=== PATIENT | female | born 1985 | race Caucasian/White ===

== ENCOUNTER 2019-10-05 12:21 | Outpatient (REF) | payer OTHER, SELFPAY ==
--- NOTE | 2019-10-05 09:30 | PAPFT_PTH ---
PATIENT: Winnie Stewart LOC: [facility]#:[id number] AGE/SX: 33/F ROOM: RE10/05/[address]: Catie Urena : 1985 BED: DIS: 10/05/2019 SPEC #: [id number] RECD: 10/05/19 12:49 STATUS: TASHA TAVAREZ #: [id number] DINA: 10/05/19 09:[address]: Catie Urena DEPT: [facility] Cytology RECD BY: Delicia Harper Tissues: 1 - CX/ENDOCX FOR PAP SMEARS Procedures: PAP THIN PREP/UVM Screening HPV DNA PROBE Comments: [id number] (CHLAMYDIA/GC)
[2019-10-06 14:14] LABS: Chlamydia Result Negative (Negative); GC Result Negative (Negative)
[2019-10-06 14:15] LABS: Chlamydia Result Negative (Negative); GC Result Negative (Negative)
== END 2019-10-05 12:41 ==
LOC: NCHCN 12:21
PROVIDERS: PCP Nurse Practitioner Family; Visit Provider Nurse Practitioner Family
DX: Z11.3 Encounter for screening for infections with a predominantly sexual mode of transmission (principal); Z12.4 Encounter for screening for malignant neoplasm of cervix; Z00.00 Encounter for general adult medical examination without abnormal findings
CPT/HCPCS: 87491; 87591; 88142; 87480; 87510; 87624; 87660

== ENCOUNTER 2020-03-26 16:38 | Outpatient (REF) | payer OTHER, SELFPAY ==
[2020-03-31 19:09] LABS: SARS-CoV-2 RNA Undetected (Undetected); SARS-CoV-2 Specimen Source Nasopharynx
== END 2020-03-26 16:58 ==
LOC: NCHCN 16:38
PROVIDERS: PCP Nurse Practitioner Family; Visit Provider Nurse Practitioner Family
DX: Z20.828 Contact with and (suspected) exposure to other viral communicable diseases (principal)
CPT/HCPCS: U0003

== ENCOUNTER 2020-05-25 12:40 | Outpatient (REF) | payer OTHER, SELFPAY | END 2020-05-25 13:00 | LOC: NCHCN 12:40 | PROVIDERS: PCP Nurse Practitioner Family; Visit Provider Nurse Practitioner Family | DX: R39.9 Unspecified symptoms and signs involving the genitourinary system (principal) | CPT/HCPCS: 87086; 87480; 87510; 87660 ==

== ENCOUNTER 2020-10-22 13:13 | Outpatient (REF) | payer OTHER, SELFPAY ==
--- NOTE | 2020-10-22 10:45 | PAPFT_PTH ---
PATIENT: Winnie Stewart LOC: [facility] U#:[id number] AGE/SX: 34/F ROOM: RE10/22/[address]: ESTEFANY Jones : 1985 BED: DIS: 10/22/2020 SPEC #: [id number] RECD: 10/23/20 12:54 STATUS: TASHA REKaykay #: [id number] DINA: 10/22/20 10:[address]: Ayesha Monreal DEPT: [facility] Cytology RECD BY: Delicia Harper Tissues: 1 - CX/ENDOCX FOR PAP SMEARS Procedures: PAP THIN PREP/UVM Screening HPV DNA PROBE Comments: [id number] (CHLAMYDIA/GC) (HPV 16 / 18/45)
[2020-10-24 14:10] LABS: Chlamydia Result Negative (Negative); GC Result Negative (Negative)
== END 2020-10-22 13:33 ==
LOC: LBN 13:13
PROVIDERS: PCP Nurse Practitioner Family; Visit Provider Nurse Practitioner Family
DX: Z12.4 Encounter for screening for malignant neoplasm of cervix (principal); Z11.51 Encounter for screening for human papillomavirus (HPV); R87.810 Cervical high risk human papillomavirus (HPV) DNA test positive
CPT/HCPCS: 87491; 87591; 88142; 87624

== ENCOUNTER 2020-10-24 04:09 | Outpatient (RCR) | payer OTHER, SELFPAY ==
--- NOTE | 2020-10-24 08:00 | HOLTER_ITS ---
APPROVED REPORT Exam Type: HOLTER MONITOR APPLICATION Reason for Test: BRADYCARDIA Patient Location: O Conclusion This is a 48-hour Holter monitor ordered for indication of bradycardia. The patient was in normal sinus rhythm for the majority of the recording with an average heart rate o f 56 bpm (41-175 bpm) There were no episodes of SVT and rare PACs. There was 1 episode of NSVT which was 4 total beats. There were rare PVCs. There were no episodes of atrial fibrillation, no pauses greater than 3 seconds and no evidence of hi gh degree heart block. There was 1 patient triggered event which was associated with sinus rhythm and a single PAC.
== END 2020-11-18 23:59 | disposition home or self-care (01) ==
LOC: RT 04:09
PROVIDERS: PCP Nurse Practitioner Family; Visit Provider Nurse Practitioner Family
DX: R00.1 Bradycardia, unspecified (principal)
CPT/HCPCS: 93225; 93226

== ENCOUNTER 2020-10-26 01:25 | Outpatient (CLI) | payer OTHER, SELFPAY ==
[2020-10-26 09:28] LABS: Anion Gap 10.2 mmol/L (3-11); BUN 12 mg/dL (7-18); CO2 26.8 mmol/L (21.0-32.0); CREATININE 0.6 mg/dL (0.55-1.02); Calcium 9.1 mg/dL (8.5-10.1); Chloride 103 mmol/L (98-107); Glucose 91 mg/dL (74-106); Potassium 4.4 mmol/L (3.5-5.1); Sodium 140 mmol/L (136-145)
[2020-10-26 12:25] LABS: Calculated LDL 103 mg/dL (<100); Cholesterol 179 mg/dL (<200); HDL Cholesterol 67 mg/dL (40-60); Triglyceride 49 mg/dL (<150)
[2020-10-29 11:36] LABS: HIV-1/2 Ag & Ab Screen Negative (Negative)
== END 2020-10-26 01:26 | disposition home or self-care (01) ==
LOC: LBO 01:25
PROVIDERS: PCP Nurse Practitioner Family; Visit Provider Nurse Practitioner Family
DX: Z00.00 Encounter for general adult medical examination without abnormal findings (principal)
CPT/HCPCS: 36415; 80048; 80061; 87389

== ENCOUNTER 2020-11-20 10:31 | Outpatient (REF) | payer OTHER, SELFPAY ==
--- NOTE | 2020-11-20 09:30 | ENDO_PTH ---
PATIENT: Winnie Stewart LOC: [facility] U#:[id number] AGE/SX: 35/F ROOM: RE11/20/[address]: Dariela Patel DO : 1985 BED: DIS: 11/20/2020 SPEC #: [id number] RECD: 11/20/20 11:20 STATUS: TASHA RE #: [id number] DINA: 11/20/20 09:[address]: Dariela Patel DEPT: Surgical Specimen RECD BY: Delicia Harper ENTERED: 11/20/20 11:20 SP TYPE: Endo OTHR DR: ESTEFANY Jones Tissues: 1 - ENDOCERVICAL BX/CURRETTE Procedures: GROSS AND MICRO LEVEL 4 Comments: [id number]
== END 2020-11-20 10:32 | disposition home or self-care (01) ==
LOC: LBN 10:31
PROVIDERS: PCP Nurse Practitioner Family; Visit Provider Obstetrics & Gynecology
DX: N88.8 Other specified noninflammatory disorders of cervix uteri (principal); R87.810 Cervical high risk human papillomavirus (HPV) DNA test positive
CPT/HCPCS: 88305

== ENCOUNTER 2021-02-11 18:11 | Outpatient (REF) | payer OTHER, SELFPAY ==
[2021-02-13 14:05] LABS: Chlamydia Result Negative (Negative); GC Result Negative (Negative)
== END 2021-02-11 18:12 | disposition home or self-care (01) ==
LOC: LBN 18:11
PROVIDERS: PCP Nurse Practitioner Family; Visit Provider Physician Assistant
DX: L29.2 Pruritus vulvae (principal); N76.0 Acute vaginitis
CPT/HCPCS: 87491; 87591; 87480; 87510; 87660

== ENCOUNTER 2021-10-30 15:42 | Outpatient (REF) | payer OTHER, SELFPAY ==
--- NOTE | 2021-10-30 15:20 | PAPFT_PTH ---
PATIENT: Winnie Stewart LOC: [facility] U#:[id number] AGE/SX: 35/F ROOM: RE10/30/[address]: Dariela Patel DO : 1985 BED: DIS: 10/30/2021 SPEC #: [id number] RECD: 10/30/21 18:27 STATUS: TASHA REKaykay #: [id number] DINA: 10/30/21 15:[address]: Dariela Patel DEPT: [facility] Cytology RECD BY: Delicia Harper ENTERED: 10/30/21 18:27 SP TYPE: PAPFT OTHR DR: Ayesha Monreal, ESTEFANY Tissues: 1 - CX/ENDOCX FOR PAP SMEARS Procedures: PAP THIN PREP/UVM Screening HPV DNA PROBE Comments: [id number] (CHLAMYDIA/GC)
[2021-10-31 15:06] LABS: Chlamydia Result Negative (Negative); GC Result Negative (Negative)
== END 2021-10-30 15:43 | disposition home or self-care (01) ==
LOC: LBN 15:42
PROVIDERS: PCP Nurse Practitioner Family; Visit Provider Obstetrics & Gynecology
DX: Z12.4 Encounter for screening for malignant neoplasm of cervix (principal); Z11.51 Encounter for screening for human papillomavirus (HPV); R87.610 Atypical squamous cells of undetermined significance on cytologic smear of cervix (ASC-US); R87.810 Cervical high risk human papillomavirus (HPV) DNA test positive
CPT/HCPCS: 87491; 87591; 88142; 87624

== ENCOUNTER 2021-12-02 13:41 | Outpatient (REF) | payer OTHER, SELFPAY ==
--- NOTE | 2021-12-02 13:00 | ENDO_PTH ---
PATIENT: Winnie Stewart LOC: [facility] U#:[id number] AGE/SX: 36/F ROOM: RE12/02/[address]: Dariela Patel DO : 1985 BED: DIS: 12/02/2021 SPEC #: [id number] RECD: 12/02/21 16:45 STATUS: TASHA RE #: [id number] DIAN: 12/02/21 13:[address]: Dariela Patel DEPT: Surgical Specimen RECD BY: Delicia Harper ENTERED: 12/03/21 11:12 SP TYPE: Endo OTHR DR: ESTEFANY Jones Tissues: 1 - ENDOCERVICAL BX/CURRETTE Procedures: GROSS AND MICRO LEVEL 4 Comments: [id number]
== END 2021-12-02 13:42 | disposition home or self-care (01) ==
LOC: LBN 13:41
PROVIDERS: PCP Nurse Practitioner Family; Visit Provider Obstetrics & Gynecology
DX: R87.610 Atypical squamous cells of undetermined significance on cytologic smear of cervix (ASC-US) (principal)
CPT/HCPCS: 88305

== ENCOUNTER 2022-04-07 22:38 | Outpatient (REF) | payer OTHER, SELFPAY ==
[2022-04-09 13:59] LABS: Chlamydia Result Negative (Negative); GC Result Negative (Negative)
== END 2022-04-07 22:39 | disposition home or self-care (01) ==
LOC: LBN 22:38
PROVIDERS: Visit Provider Physician Assistant
DX: R30.0 Dysuria (principal); Z11.3 Encounter for screening for infections with a predominantly sexual mode of transmission
CPT/HCPCS: 87491; 87591; 87480; 87510; 87660

== ENCOUNTER 2022-11-15 10:50 | Outpatient (CLI) | payer BC, SELFPAY | END 2022-11-15 10:51 | disposition home or self-care (01) | LOC: DI.CM 10:50 | PROVIDERS: PCP Nurse Practitioner Family; Visit Provider Physician Assistant ==

== ENCOUNTER 2022-12-22 15:11 | Outpatient (REF) | payer BC, SELFPAY ==
--- NOTE | 2022-12-22 14:45 | PAPFT_PTH ---
PATIENT: Winnie Stewart LOC: [facility] U#:[id number] AGE/SX: 37/F ROOM: RE12/22/[address]: Dariela Patel DO : 1985 BED: DIS: 12/22/2022 SPEC #: [id number] RECD: 12/22/22 18:22 STATUS: TASHA REQ #: [id number] DINA: 12/22/22 14:[address]: Dariela Patel DEPT: [facility] Cytology RECD BY: Delicia Harper ENTERED: 12/22/22 18:22 SP TYPE: PAPFT OTHR DR: Ayesha Monreal, BUSINESS ATTORNEY Tissues: 1 - CX/ENDOCX FOR PAP SMEARS Procedures: PAP THIN PREP/UVM Screening HPV DNA PROBE Comments: [id number] (HPV 16 & 18/45)
== END 2022-12-22 15:12 | disposition home or self-care (01) ==
LOC: LBN 15:11
PROVIDERS: PCP Nurse Practitioner Family; Visit Provider Obstetrics & Gynecology
DX: Z12.4 Encounter for screening for malignant neoplasm of cervix (principal); R87.610 Atypical squamous cells of undetermined significance on cytologic smear of cervix (ASC-US); Z11.51 Encounter for screening for human papillomavirus (HPV); R87.810 Cervical high risk human papillomavirus (HPV) DNA test positive
CPT/HCPCS: 88142; 87624

== ENCOUNTER 2023-01-26 15:49 | Outpatient (REF) | payer BC, SELFPAY ==
--- NOTE | 2023-01-26 15:30 | ENDO_PTH ---
PATIENT: Winnie Stewart LOC: [facility] U#:[id number] AGE/SX: 37/F ROOM: RE01/26/[address]: Dariela Patel DO : 1985 BED: DIS: 01/26/2023 SPEC #: [id number] RECD: 01/26/23 18:17 STATUS: TASHA RE #: [id number] DINA: 01/26/23 15:[address]: Dariela Patel DEPT: Surgical Specimen RECD BY: Delicia Harper ENTERED: 01/26/23 18:17 SP TYPE: Endo OTHR DR: ESTEFANY Jones Tissues: 1 - ENDOCERVICAL BX/CURRETTE 2 - CERVICAL BIOPSY Procedures: GROSS AND MICRO LEVEL 4 Comments: [id number]
== END 2023-01-26 15:50 | disposition home or self-care (01) ==
LOC: LBN 15:49
PROVIDERS: PCP Nurse Practitioner Family; Visit Provider Obstetrics & Gynecology
DX: R87.610 Atypical squamous cells of undetermined significance on cytologic smear of cervix (ASC-US) (principal); R87.810 Cervical high risk human papillomavirus (HPV) DNA test positive; N88.8 Other specified noninflammatory disorders of cervix uteri
CPT/HCPCS: 88305

== ENCOUNTER 2024-01-07 15:15 | Outpatient (REF) | payer BC, SELFPAY ==
--- NOTE | 2024-01-07 15:00 | PAPFT_PTH ---
PATIENT: Winnie Stewart LOC: [facility] U#:[id number] AGE/SX: 38/F ROOM: RE01/07/[address]: Dariela Patel DO : 1985 BED: DIS: 01/07/2024 SPEC #: [id number] RECD: 01/07/24 17:40 STATUS: TASHA REQ #: [id number] DINA: 01/07/24 15:[address]: Dariela Patel DEPT: [facility] Cytology RECD BY: Delicia Harper ENTERED: 01/07/24 17:40 SP TYPE: PAPFT OTHR DR: Ayesha Monreal, ENGINEERING PSYCHOLOGIST Tissues: 1 - CX/ENDOCX FOR PAP SMEARS Procedures: PAP THIN PREP/UVM Screening HPV DNA PROBE Comments: [id number] (HPV 16 & 18/45)
== END 2024-01-07 15:16 | disposition home or self-care (01) ==
LOC: LBN 15:15
PROVIDERS: PCP Nurse Practitioner Family; Visit Provider Obstetrics & Gynecology
DX: Z01.419 Encounter for gynecological examination (general) (routine) without abnormal findings (principal); R87.810 Cervical high risk human papillomavirus (HPV) DNA test positive; R87.610 Atypical squamous cells of undetermined significance on cytologic smear of cervix (ASC-US)
CPT/HCPCS: 88142; 87624

== ENCOUNTER 2024-02-12 11:59 | Outpatient (REF) | payer BC, SELFPAY ==
--- NOTE | 2024-02-12 09:00 | ENDO_PTH ---
PATIENT: Winnie Stewart LOC: [facility] U#:[id number] AGE/SX: 38/F ROOM: RE02/12/[address]: Dariela Patel DO : 1985 BED: DIS: 02/12/2024 SPEC #: [id number] RECD: 02/12/24 13:07 STATUS: TASHA REKaykay #: [id number] DINA: 02/12/24 09:[address]: Dariela Patel DEPT: Surgical Specimen RECD BY: Delicia Harper ENTERED: 02/12/24 13:07 SP TYPE: Endo OTHR DR: ESTEFANY Jones Tissues: 1 - ENDOCERVICAL BX/CURRETTE Procedures: GROSS AND MICRO LEVEL 4 Comments:
== END 2024-02-12 12:00 | disposition home or self-care (01) ==
LOC: LBN 11:59
PROVIDERS: PCP Nurse Practitioner Family; Visit Provider Obstetrics & Gynecology
DX: R87.611 Atypical squamous cells cannot exclude high grade squamous intraepithelial lesion on cytologic smear of cervix (ASC-H) (principal)
CPT/HCPCS: 88305

== ENCOUNTER 2024-11-15 02:00 | Outpatient (CLI) | payer BC, SELFPAY ==
--- NOTE | 2024-11-15 12:32 | DI.RAD_ITS ---
Exam(s) XR FOOT LT COMPLETE EXAM: XR FOOT LT COMPLETE CLINICAL HISTORY: Left foot/Toe pain,m79.672. TECHNIQUE: 2D digital imaging was performed of the left foot. Four images were obtained. AP, obliq ue and lateral views were obtained. COMPARISON: No exams were available for comparison FINDINGS: BONES: No acute fracture is present. No bony destructive lesion is seen. JOINTS: No dislocation present. There is a mild hallux valgus deformity. SOFT TISSUE: Normal. IMPRESSION: No acute abnormality. Mild hallux valgus deformity. DATA REPOSITORY: RADIATION DOSE DELIVERED:
== END 2024-11-15 02:20 ==
LOC: DI 02:00
PROVIDERS: PCP Nurse Practitioner Family; Visit Provider Podiatrist
DX: M79.672 Pain in left foot (principal)
CPT/HCPCS: 73630

== ENCOUNTER 2025-01-17 10:57 | Outpatient (REF) | payer BC, SELFPAY ==
--- NOTE | 2025-01-17 10:45 | PAPFT_PTH ---
PATIENT: Winnie Stewart LOC: [facility] U#:[id number] AGE/SX: 39/F ROOM: RE01/17/[address]: Dariela Patel DO : 1985 BED: DIS: 01/17/2025 SPEC #: [id number] RECD: 01/17/25 12:55 STATUS: TASHA REQ #: [id number] DINA: 01/17/25 10:[address]: Dariela Patel DEPT: [facility] Cytology RECD BY: Delicia Harper ENTERED: 01/17/25 12:55 SP TYPE: PAPFT OTHR DR: Ayesha Monreal, HYBRID TESTER Tissues: 1 - CX/ENDOCX FOR PAP SMEARS Procedures: PAP THIN PREP/UVM Screening HPV DNA PROBE Comments: [id number] (HPV 16 & 18/45)
== END 2025-01-17 10:58 | disposition home or self-care (01) ==
LOC: LBN 10:57
PROVIDERS: PCP Nurse Practitioner Family; Visit Provider Obstetrics & Gynecology
DX: Z12.4 Encounter for screening for malignant neoplasm of cervix (principal)
CPT/HCPCS: 88142; 87624

== ENCOUNTER 2025-02-17 00:57 | Outpatient (CLI) | payer BC, SELFPAY ==
[2025-02-17 12:34] LABS: HGB 13.2 g/dL (11.2-15.7); MCH 29.3 pg (27.0-33.0); MCHC 32.2 % (32.0-36.0); MCV 91 fL (80-95); MPV 9.8 fL (8.0-11.0); Platelet Count 252 10^3/uL (130-400); RBC 4.51 10^6/uL (3.93-5.22); RDW 12.7 % (11.7-14.6); RDW-SD 41.4 fL; WBC 3.72 10^3/uL (4.4-10.8)
[2025-02-17 13:09] LABS: ALT 15 U/L (14-59); AST 20 U/L (15-37); Albumin 3.5 g/dL (3.4-5.0); Alkaline Phosphatase 71 U/L (46-116); Anion Gap 7.5 mmol/L (3-11); BUN 11 mg/dL (7-18); Bilirubin, Total 0.4 mg/dL (0.2-1.0); CO2 26.5 mmol/L (21.0-32.0); CREATININE 0.6 mg/dL (0.55-1.02); Calcium 8.8 mg/dL (8.5-10.1); Calculated LDL 102 mg/dL (<100); Chloride 103 mmol/L (98-107); Cholesterol 174 mg/dL (<200); Estimated GFR 117.02 (mL/min/1.73m2); Glucose 82 mg/dL (74-106); HDL Cholesterol 67 mg/dL (>or=50); Potassium 4.4 mmol/L (3.5-5.1); Sodium 137 mmol/L (136-145); TSH (W/Ref FT4) 0.77 uIU/mL (0.36-3.74); Total Protein 6.8 g/dL (6.4-8.2); Triglyceride 25 mg/dL (<150); Vitamin B12 213 pg/mL (193-986); Vitamin D 25 Total 35 ng/mL (30-100)
== END 2025-02-17 00:58 | disposition home or self-care (01) ==
LOC: LOS 00:57
PROVIDERS: PCP Nurse Practitioner Family; Visit Provider Nurse Practitioner Family
DX: R40.0 Somnolence (principal); Z00.00 Encounter for general adult medical examination without abnormal findings; R87.810 Cervical high risk human papillomavirus (HPV) DNA test positive; Z30.431 Encounter for routine checking of intrauterine contraceptive device
CPT/HCPCS: 36415; 80053; 80061; 82306; 85027; 82607; 84443